=== PATIENT | female | born 1940 | race African-American/Black ===

== ENCOUNTER → 2021-09-09 | Outpatient (CLI) | payer MEDICARE ==
[2015-04-08 01:24] VITALS: BP 146/71
[~2021-09-09] MED LIST: ASCO500C PO; CALC-495 PO; ERGO500090 PO; EZET10TA20 PO; GABA-585 PO; GLIP10TA24 PO; HYDR12.58 PO; PIOG15TA63 PO
--- NOTE | 2021-09-10 10:13 | RAD ---
XR LUMBAR SPINE 4+V History: Reason: LOW BACK PAIN-FELL LAST WEEK / Spl. Instructions: / History: Technique: 5 views lumbar spine. Comparison: None. Findings: L1 mild superior and inferior endplate compression deformities. Mild L3 superior endplate compression deformity. Mild L5 superior endplate compression deformity. Grade 1 anterolisthesis L4 on L5. Mild d egenerative disc changes most prominent L4-5. Lower lumbar facet arthropathy. Impression: 1. L1 age-indeterminate mild compression fracture. Recommend correlation with point tenderness. If p ersistent clinical concern, recommend MRI to further assess. 2. Chronic appearing L3 and L5 compression deformities. Recommend attention on follow-up. Electronically signed by: Fan Posada DO (09/10/2021 10:11 AM) [id number]
== END ==
LOC: RAD 16:48
PROVIDERS: ATTEND Internal Medicine
DX: M47.816 Spondylosis without myelopathy or radiculopathy, lumbar region (principal); M48.56XA Collapsed vertebra, not elsewhere classified, lumbar region, initial encounter for fracture; M43.16 Spondylolisthesis, lumbar region; M48.8X6 Other specified spondylopathies, lumbar region; M43.8X6 Other specified deforming dorsopathies, lumbar region
CPT/HCPCS: 72110